=== PATIENT | male | born 1990 | race Native Hawaiian/Other Pacific Islander ===

== ENCOUNTER 2021-07-01 08:41 | Emergency (ER) | payer OTHER ==
[~2021-07-01] VITALS: Ht 180.3 cm; Wt 113.4 kg
[2021-07-01 08:51] VITALS: TEMP 97.5
[2021-07-01 09:10] LABS: PLATELET COUNT 239 K/uL (142-355)
[2021-07-01 09:18] LABS: POTASSIUM 4.5 mmol/L (3.6-5.2)
[2021-07-01 11:06] VITALS: BP 134/64
== END 2021-07-01 11:06 | disposition home or self-care (01) ==
LOC: ED 08:41
PROVIDERS: Emergency Medicine
DX: K52.89 Other specified noninfective gastroenteritis and colitis (principal); R51.9 Headache, unspecified
CPT/HCPCS: 80053; 82150; 83690; 85027; 96360; 96376; 99284; J2175; J2405; Q9963

== ENCOUNTER 2022-05-13 09:28 | Outpatient (CLI) | payer OTHER ==
[2022-05-13 10:07] LABS: PLATELET COUNT 283 K/uL (142-355)
[2022-05-13 10:24] LABS: POTASSIUM 4.7 mmol/L (3.6-5.2); SODIUM 139 mmol/L (136-145)
== END 2022-05-13 19:08 | disposition home or self-care (01) ==
LOC: RESP 09:28
PROVIDERS: ATTEND Nurse Practitioner Family
DX: R07.89 Other chest pain (principal)
CPT/HCPCS: 36415; 80053; 82550; 82553; 84484; 85027; 93005